=== PATIENT | female | born 1995 | race Caucasian/White ===

== ENCOUNTER 2019-07-11 12:35 | Emergency (ER) | payer OTHER ==
[~2019-07-11] VITALS: Ht 162.6 cm; Wt 51.7 kg
[~2019-07-11 12:35] MED LIST: [UNRECOGNIZED DRUG - OTHER]; [UNRECOGNIZED DRUG - OTHER]
[2019-07-11] MEDS ORDERED: DOLOGEN CAPLET1 EACH PO (14:57)
[2019-07-11] MEDS ORDERED: ZITHROMAX500 MG PO (14:57)
[2019-07-11] MEDS ORDERED: TUSNEL LIQUID178 ML PO (14:57)
== END 2019-07-11 15:06 | disposition home or self-care (01) ==
LOC: ER 12:35
DX: B34.9 Viral infection, unspecified (principal)

== ENCOUNTER 2019-07-24 18:29 | Emergency (ER) | payer OTHER ==
[~2019-07-24] VITALS: Ht 162.6 cm; Wt 51.7 kg
[~2019-07-24 18:29] MED LIST changes: +DOLOGEN CAPLET1 EACH PO; +TUSNEL LIQUID178 ML PO; +ZITHROMAX500 MG PO
[2019-07-24] MEDS ORDERED: PROZAC20 MG (18:35)
[2019-07-24] MEDS ORDERED: ATIVAN2 M1 (18:36)
[2019-07-24] MEDS ORDERED: AMPHETAMINE SAL20 MG (18:36)
== END 2019-07-24 21:13 | disposition home or self-care (01) ==
LOC: ER 18:29
DX: R00.2 Palpitations (principal)

== ENCOUNTER → 2019-08-19 | Emergency (ER) | payer OTHER ==
[~2019-08-19] VITALS: Ht 162.6 cm; Wt 49.9 kg
[~2019-08-19] MED LIST changes: +AMPHETAMINE SAL20 MG; +ATIVAN2 M1; +PROZAC20 MG
== END | disposition home or self-care (01) ==
LOC: ER 18:47
DX: R53.1 Weakness (principal); R06.02 Shortness of breath; F32.89 Other specified depressive episodes; T45.0X5A Adverse effect of antiallergic and antiemetic drugs, initial encounter; T43.225A Adverse effect of selective serotonin reuptake inhibitors, initial encounter; T40.7X5A Adverse effect of cannabis (derivatives), initial encounter; Y92.89 Other specified places as the place of occurrence of the external cause